=== PATIENT | male | born 1985 | race African-American/Black ===

== ENCOUNTER 2016-12-23 12:44 | Emergency (ER) | payer SELFPAY ==
--- NOTE | 2016-12-24 13:42 | ER ---
ADMIT: 12/23/2016 RM/LOC: ER [facility] MR#: [id number] [id number] [place] [address] Emergency Room Report SEX: M AGE: 31 : 1985 DATE: 12/23/2016 HISTORY OF PRESENT ILLNESS: The patient is a 31-year-old male with chief complaint of bilateral intermittent red eyes and itching for the last month. At the moment, he has bilateral redness of the eye with clear discharge and without any yellow discharge and says that he had this problem intermittently, and at the moment, problem is more severe on the left side than right side. The patient denies any changes in vision recently, the patient denies any similar problems in the family. The patient denied any cough, sore throat, fever, or runny nose. PHYSICAL EXAMINATION: VITAL SIGNS: The patient has stable vitals. GENERAL: In no distress, alert and oriented. HEENT: There are no obvious signs of trauma to the eyes, bilateral conjunctivae are injected, there is no exudate, there is obvious foreign body in conjunctivae, eyelid also inspected. There is no foreign body or no pathologies there, cornea was stained, and there are no abrasions or lacerations, or foreign bodies. Extraocular movements are normal, pupils are 3 mm, reactive to light bilaterally, right eye visual acuity is 20/25 and the left is 20/30, and bilateral is 20/30, and the right eye pressure is 13 mmHg and then the left side is 17, which are all normal. All the physical examination and history are indicative of acute conjunctivitis possibly due to allergic reaction, the patient was given naphazoline ophthalmic and pseudoephedrine p.o. and was sent home to follow up with the primary doctor as needed. The patient was given return precautions too. Babek Farivar, MD/ carlyn JOB #: [id number] CC: Pako Jones MD, Attending Physician Jose Jensen MD, Family Physician
== END 2016-12-23 14:50 | disposition home or self-care (01) ==
LOC: ER 12:44
DX: H10.13 Acute atopic conjunctivitis, bilateral (principal)